=== PATIENT | male | born 1990 | race African-American/Black ===

== ENCOUNTER 2017-04-08 09:00 | Emergency (ER) | payer MEDICAID, SELFPAY | END 2017-04-08 11:10 | disposition home or self-care (01) | LOC: ERS 09:00 | DX: J11.1 Influenza due to unidentified influenza virus with other respiratory manifestations (principal); F17.210 Nicotine dependence, cigarettes, uncomplicated | CPT/HCPCS: 99283 ==

== ENCOUNTER 2017-11-27 19:28 | Emergency (ER) | payer SELFPAY | END 2017-11-27 20:44 | disposition home or self-care (01) | LOC: ERS 19:28 | DX: A08.4 Viral intestinal infection, unspecified (principal); F17.210 Nicotine dependence, cigarettes, uncomplicated | CPT/HCPCS: 99406 ==

== ENCOUNTER 2017-12-04 09:40 | Emergency (ER) | payer SELFPAY ==
[2017-12-04] MEDS ORDERED: Ketorolac Tromethamine 30 MG/ML VIAL ONE (11:18)
== END 2017-12-04 11:31 | disposition home or self-care (01) ==
LOC: ERS 09:40
DX: M54.6 Pain in thoracic spine (principal); F17.210 Nicotine dependence, cigarettes, uncomplicated; X50.0XXA Overexertion from strenuous movement or load, initial encounter; Y99.0 Civilian activity done for income or pay
CPT/HCPCS: 96372; J1885

== ENCOUNTER 2020-02-02 17:19 | Emergency (ER) | payer SELFPAY ==
[2020-02-03 03:09] LABS: SARS-CoV-2 MS2 Positive; SARS-CoV-2 N Gene Negative; SARS-CoV-2 S Gene Negative; SARS-CoV-2 by NAA Not Detected (NotDetected); SARS-CoV-2 orf1ab Negative
== END 2020-02-02 17:40 | disposition home or self-care (01) ==
LOC: ERS 17:19
DX: Z20.828 Contact with and (suspected) exposure to other viral communicable diseases (principal); F17.210 Nicotine dependence, cigarettes, uncomplicated
CPT/HCPCS: 87635; 99283; U0003

== ENCOUNTER 2020-05-05 16:36 | Emergency (ER) | payer SELFPAY ==
[2020-05-05 22:38] LABS: SARS-CoV-2 PCR by NAA Not Detected (NotDetected)
== END 2020-05-05 17:01 | disposition home or self-care (01) ==
LOC: ERS 16:36
DX: R06.02 Shortness of breath (principal); R09.81 Nasal congestion; Z20.822 Contact with and (suspected) exposure to COVID-19; F17.210 Nicotine dependence, cigarettes, uncomplicated
CPT/HCPCS: 87635; 99283; U0003; U0005